=== PATIENT | female | born 1970 | race Caucasian/White ===

== ENCOUNTER → 2018-04-19 12:18 | Outpatient (CLI) | payer OTHER, SELFPAY ==
[2018-04-19 12:55] LABS: Hemoglobin A1c 5.1 % (4.2-6.3)
[2018-04-19 13:43] LABS: Estradiol 34.3 pg/mL; Free T3 2.5 pg/mL (2.18-3.98); T4 Free Direct 0.91 ng/dL (0.76-1.46); Thyroid Stim Hormone (TSH) 1.86 uIU/mL (0.358-3.74)
[2018-04-20 10:30] LABS: Progesterone Level 5.25 ng/mL (See Comment)
[2018-04-26 10:06] LABS: HPV Reflexed? NOT INDICATED
== END ==
PROVIDERS: Visit Provider Obstetrics & Gynecology
DX: N92.0 Excessive and frequent menstruation with regular cycle (principal); Z12.4 Encounter for screening for malignant neoplasm of cervix
CPT/HCPCS: 36415; 82670; 83036; 84144; 84439; 84443; 84481; 88175; G0145

== ENCOUNTER → 2018-05-10 14:19 | Outpatient (CLI) | payer OTHER, SELFPAY ==
--- NOTE | 2018-05-10 14:22 | BI_ITS ---
MAMMOGRAPHY - BILATERAL SCREENING REASON FOR EXAM: Female, 48 years old. Routine annual screening examination. PERTINENT HISTORY: Non-contributory. TECHNIQUE: Digital bilateral breast ana (3D mammographic acquisition) in the CC and MLO projections. 2-D mediolateral oblique (MLO) and craniocaudad (CC) views of both breasts were obtained. CAD: Full Field Digital Mammography with Computer Added Detection was performed. COMPARISON: Comparison is made with prior study dated March 22, 2016 and October 03, 2011. FINDINGS: Breast Composition: The breasts are heterogeneously dense, which may obscure small masses. I suspect a 2.1 cm x 1.9 cm well-defined nodule in the upper deep lateral portion of the left breast. Correlation with ultrasound is recommended. No other significant abnormalities are identified. BI/SCREENING MAMM (CAD), BILAT IMPRESSION: Findings suggest a multinodular density in the deep upper lateral portion of the left breast as described. Correlation with ultrasound is recommended. ASSESSMENT CATEGORY: BIRADS Category 0: Incomplete. Need additional imaging evaluation. A letter regarding these results will be sent to the patient by the facility within 30 days. Approximately 10% of breast cancers are not detected by mammography. A normal mammogram should not delay biopsy of a clinically suspicious abnormality. [id number] Electronically Signed: Wojciech Mcdonald MD at 13:53 EDT Tel [phone], Service support ,
== END ==
PROVIDERS: Visit Provider Obstetrics & Gynecology
DX: Z12.31 Encounter for screening mammogram for malignant neoplasm of breast (principal)
CPT/HCPCS: 77063; 77067

== ENCOUNTER → 2018-05-17 08:51 | Outpatient (CLI) | payer OTHER, SELFPAY ==
--- NOTE | 2018-05-17 08:54 | US_ITS ---
STUDY: ULTRASOUND BREAST - LEFT REASON FOR EXAM: Female, 48 years old. Abnormal screening mammogram. TECHNIQUE: Axial and longitudinal images of the LEFT breast were performed with a high resolution ultrasound transducer. COMPARISON: Comparison is made with prior mammogram dated May 10, 2018. FINDINGS: LEFT Breast: 3 cysts are seen. There is a 2.1 cm x 2.5 cm x 0.8 cm cyst at the 12:00 position in the breast at 2 cm from nipple. There is a 6 mm x 9 mm x 6 mm cyst at the 1:00 position of the breast at 3 cm from the nipple. This also evidence of a 2.5 cm x 2.2 cm x 1.6 cm cyst at the 2:00 position the breast at 3 cm from the nipple. US/Breast Limited Unilateral IMPRESSION: 3 cysts are seen in the breast as described. Routine mammographic follow-up is recommended. ASSESSMENT CATEGORY: BIRADS Category 2: Benign. A letter regarding these results will be sent to the patient by the facility within 30 days. Electronically Signed: Wojciech Mcdonald MD at 9:54 EDT Tel [phone], Service support ,
== END ==
PROVIDERS: Visit Provider Obstetrics & Gynecology
DX: R92.8 Other abnormal and inconclusive findings on diagnostic imaging of breast (principal)
CPT/HCPCS: 76642

== ENCOUNTER → 2019-06-07 | Outpatient (CLI) | payer OTHER, SELFPAY ==
[2019-06-07 16:07] LABS: Hematocrit 37.1 % (37-47); Hemoglobin 12.2 g/dl (12.0-15.0); Mean Corp Hgb Conc 32.9 g/gl (32-36); Mean Corpuscular Hgb 29.1 pg (27.0-32.0); Mean Corpuscular Volume 88.5 fL (81-99); Mean Platelet Vol. 10.5 fl (6.2-12.0); Platelet Count 394 K/mm3 (150-450); RBC Distribution Width CV 13.2 % (11.6-14.6); Red Blood Count 4.19 M/mm3 (4.2-5.4); Scan Indicated on CBC? Y/N NO; White Blood Count 9.3 K/mm3 (4.4-11.0)
[2019-06-07 16:25] LABS: hCG Titer Quant., Serum < 1 mIU/mL (1-3)
[2019-06-07 16:30] LABS: Progesterone Level 0.16 ng/mL (See Comment)
[2019-06-07 16:46] LABS: Hemoglobin A1c 5.2 % (4.2-6.3)
[2019-06-07 16:49] LABS: Estradiol 59.6 pg/mL; Free T3 2.3 pg/mL (2.18-3.98); T4 Free Direct 0.85 ng/dL (0.76-1.46); Thyroid Stim Hormone (TSH) 2.42 uIU/mL (0.358-3.74)
[2019-06-14 12:35] LABS: HPV Reflexed? NOT INDICATED
== END | disposition home or self-care (01) ==
LOC: WOBLAB 13:39
PROVIDERS: Visit Provider Obstetrics & Gynecology
DX: N92.6 Irregular menstruation, unspecified (principal); Z12.4 Encounter for screening for malignant neoplasm of cervix
CPT/HCPCS: 36415; 82670; 83036; 84144; 84403; 84439; 84443; 84481; 84702; 85027; 88175; G0145

== ENCOUNTER → 2019-06-07 | Outpatient (CLI) | payer OTHER, SELFPAY ==
--- NOTE | 2019-06-07 14:04 | US_ITS ---
STUDY: ULTRASOUND TRANSVAGINAL CLINICAL: Female, 49 years old. Irregular cycles and heavy periods TECHNIQUE: Transvaginal COMPARISON: None. FINDINGS: Normal uterine size measuring 9.8 x 5.6 x 4.6 cm. 3 myometrial nodules are noted measuring 13 x 12 x 8 mm, 9 x 9 x 7 mm, and 12 x 11 x 10 mm, likely multiple small fibroids. Normal endometrial thickness measuring 9 mm. There are no endometrial masses, and there is no fluid in the endometrial cavity. Nabothian cyst in the cervix. Normal right ovary, measuring 2.9 x 2.5 x 2.0 cm. There are multiple follicles without a dominant cyst. The left ovary measures 2.9 x 2.4 x 2.0 cm, and contains a 13 x 13 x 11 mm simple cyst. There is no free fluid in the pelvis. Polycystic ovary disease: No. US/Transvaginal Non- IMPRESSION: 3 small myometrial fibroids are present as described. 13 mm left ovary cyst. Electronically Signed: Tigre Hurd MD at 17:51 EDT Tel , Service support ,
== END | disposition home or self-care (01) ==
LOC: US 14:01
PROVIDERS: Family Provider Family Medicine; PCP Family Medicine; Referring Provider Obstetrics & Gynecology; Visit Provider Obstetrics & Gynecology
DX: N92.6 Irregular menstruation, unspecified (principal)
CPT/HCPCS: 76830

== ENCOUNTER 2021-02-19 14:03 | Outpatient (RCR) | payer BC, SELFPAY | END 2021-05-04 23:59 | LOC: IMMUN 14:03 | PROVIDERS: PCP Family Medicine; Visit Provider Family Medicine | DX: Z23 Encounter for immunization (principal) | CPT/HCPCS: 0001A; 0002A; 91300 ==

== ENCOUNTER → 2021-05-20 16:25 | Outpatient (CLI) | payer BC, SELFPAY ==
[2018-05-28 08:42] VITALS: BMI 30.2
--- NOTE | 2021-05-20 16:28 | BI_ITS ---
MAMMOGRAPHY - BILATERAL SCREENING 3-D TOMOSYNTHESIS REASON FOR EXAM: Female, 51 years old. SCREENING PERTINENT HISTORY: No significant family history. TECHNIQUE: 2-D mammograms and 3-D Tomosynthesis of the breast (s) were performed. CAD was performed. COMPARISON: 05/10/2018. FINDINGS: The breast composition is of heterogeneous fibroglandular tissue In today''s examination there is an added density 1.7 cm seen in the middle portion of the right the breast (in the CC view) , this is new finding since the previous examination for which I do recommend ultrasound for better assessment. Otherwise: No dense spiculated masses or suspicious microcalcifications are identified. No architectural distortion is identified. There is no skin thickening or nipple retraction. BI/SCRN MAMM (CAD)W/CASE BILAT IMPRESSION: Questionable 1.7 cm added density medial portion of the right breast noted on the CC view this was not seen in the previous study. Ultrasound is recommended. BIRADS-0. FOLLOW UP RECOMMENDATION: Yearly follow up mammogram recommended. (A) Approximately 10% of breast cancers are not detected by mammography. A normal mammogram should not delay biopsy of a clinically suspicious abnormality. Electronically Signed: Nevaeh Gibbons, at 13:46 EDT Tel , Service support ,
== END ==
PROVIDERS: PCP Family Medicine; Referring Provider Student in an Organized Health Care Education/Training Program; Visit Provider Student in an Organized Health Care Education/Training Program
DX: Z12.31 Encounter for screening mammogram for malignant neoplasm of breast (principal)
CPT/HCPCS: 77063; 77067

== ENCOUNTER → 2021-05-26 14:54 | Outpatient (CLI) | payer BC, SELFPAY ==
--- NOTE | 2021-05-26 14:59 | US_ITS ---
STUDY: ULTRASOUND BREAST - RIGHT REASON FOR EXAM: Female, 51 years old. Abnormal screening mammogram. TECHNIQUE: Axial and longitudinal images of the RIGHT breast were performed with a high resolution ultrasound transducer. # OF IMAGES: [phone] COMPARISON: Comparison is made with prior mammogram dated 05/20/2021. FINDINGS: RIGHT Breast: The medial half of the right breast was examined by ultrasound. No sonographic abnormality is seen. US/Breast Limited Unilateral IMPRESSION: No sonographic abnormality is seen. Routine annual mammographic follow-up is recommended. ASSESSMENT CATEGORY: BIRADS Category 1: Negative. A letter regarding these results will be sent to the patient by the facility within 30 days. Electronically Signed: Wojciech Mcdonald MD at 15:44 EDT , Service support ,
== END ==
PROVIDERS: PCP Family Medicine; Referring Provider Student in an Organized Health Care Education/Training Program; Visit Provider Student in an Organized Health Care Education/Training Program
DX: R92.2 Inconclusive mammogram (principal)
CPT/HCPCS: 76642

== ENCOUNTER → 2025-01-23 | Outpatient (CLI) | payer OTHER, SELFPAY | END | disposition home or self-care (01) | PROVIDERS: PCP Family Medicine; Visit Provider Nurse Practitioner Adult Health | DX: G47.33 Obstructive sleep apnea (adult) (pediatric) (principal) | CPT/HCPCS: 95810 ==